=== PATIENT | female | born 1980 | race Asian ===

== ENCOUNTER 2018-02-16 01:31 | Inpatient (IN) | payer MEDICAID ==
[~2018-02-16] VITALS: Ht 160 cm; Wt 82.6 kg
[2018-02-16] MEDS ORDERED: LR 1,000 ML IV SCH ×2 (01:57→12:33)
[2018-02-16] MEDS ORDERED: CEFAZOLIN 2 GM IVPB PREMIX 50 ML IV ONE (02:00)
[2018-02-16] MEDS ORDERED: AMPICILLIN SODIUM 2 GM in NS 100 ML IV ONE (02:00)
[2018-02-16] MEDS ORDERED: TERBUTALINE SULFATE 1 MG/ML VIAL SUBCUT ONE (02:00)
[2018-02-16] MEDS ORDERED: AMPICILLIN SODIUM 2 GM VIAL ONE (02:28)
[2018-02-16 02:40] LABS: BILIRUBIN,URINE NEGATIVE (NEGATIVE); BLOOD, URINE 1+ (NEGATIVE); CLARITY/URINE CLEAR (CLEAR); COLOR,URINE YELLOW (YELLOW); GLUCOSE,URINE NEGATIVE (NEGATIVE); KETONES,URINE NEGATIVE (NEGATIVE); LEUKOCYTE ESTERASE ,URINE NEGATIVE (NEGATIVE); NITRITE, URINE NEGATIVE (NEGATIVE); PROTEIN URINE TRACE (NEGATIVE); UROBILINOGEN,URINE 0.2 (0.2-1.0)
[2018-02-16 02:47] LABS: BASOPHILS % (AUTO) 0.4 % (0.0-2.0); EOSINOPHILS # (AUTO) 0.1 K/uL (0.0-0.4); EOSINOPHILS % (AUTO) 0.9 % (0.0-4.0); HEMOGLOBIN 12.6 g/dL (12.0-16.0); LYMPHOCYTES # (AUTO) 1.9 K/uL (1.0-5.5); LYMPHOCYTES % (AUTO) 16.9 % (20.5-51.5); MEAN CORPUSCULAR HEMOGLOBIN 29 pg (27-31); MEAN CORPUSCULAR HGB CONC 33 % (32-36); MEAN CORPUSCULAR VOLUME 86 fL (79.0-98.0); MONOCYTES # (AUTO) 0.9 K/uL (0.0-1.0); MONOCYTES % (AUTO) 7.5 % (1.7-9.3); NEUTROPHILS # (AUTO) 8.6 K/uL (1.8-7.7); NEUTROPHILS % (AUTO) 74.3 % (40.0-70.0); PLATELET COUNT (AUTO) 178 K/uL (130-430); RED BLOOD CELL COUNT(AUTO) 4.42 MIL/uL (4.2-6.2); RED CELL DISTRIBUTION WIDTH 19.4 % (9.0-15.0); WHITE BLOOD COUNT (AUTO) 11.5 K/uL (4.8-10.8)
[2018-02-16 02:53] LABS: BACTERIA,URINE FEW /HPF (None Seen); WBC,URINE 0-3 /HPF (0-3)
[2018-02-16 02:54] LABS: MUCUS,URINE 1+ /LPF (None Seen)
[2018-02-16 03:36] VITALS: BP_SYST 123
[2018-02-16] MEDS ORDERED: AMPICILLIN SODIUM 1 GM in NS 50 ML IV SCH (06:00)
[2018-02-16] MEDS ORDERED: DIPHENHYDRAMINE INJ 50 MG/ML VIAL IVP PRN (06:45)
[2018-02-16] MEDS ORDERED: KETOROLAC TROMETHAMINE 60 MG/2 ML VIAL IM PRN (06:45)
[2018-02-16] MEDS ORDERED: ONDANSETRON HCL 4 MG/2 ML VIAL IVP PRN ×2 (06:45)
[2018-02-16] MEDS ORDERED: fentaNYL CITRATE/PF 100 MCG/2 ML AMP IVP PRN ×2 (06:45)
[2018-02-16] MEDS ORDERED: NALBUPHINE HCL 10 MG/ML AMP IVP PRN (06:45)
[2018-02-16] MEDS ORDERED: NALOXONE HCL 0.4 MG/ML AMP (NARCAN) IVP PRN ×2 (06:45)
[2018-02-16] MEDS ORDERED: MORPHINE SULFATE 10MG/10ML PF AMP SP SCH (06:45)
[2018-02-16] MEDS ORDERED: KETOROLAC TROMETHAMINE 30 MG VIAL IVP PRN (06:45)
[2018-02-16 07:20] VITALS: BP_SYST 120
[2018-02-16] MEDS ORDERED: OXYTOCIN/0.9 % SODIUM CHLORIDE 1,000 ML IV ONE ×2 (11:30→12:33)
[2018-02-16] MEDS ORDERED: SIMETHICONE 80 MG TAB.CHEW PO PRN (12:45)
[2018-02-16] MEDS ORDERED: BISACODYL 10 MG/SUPPOSITORY RC PRN (12:45)
[2018-02-16] MEDS: CEFAZOLIN 1 GM IVPB PREMIX 50 ML IV SCH ×2 (13:40→18:36)
[2018-02-17] MEDS ORDERED: ACETAMINOPHEN 325 MG TABLET PO PRN (03:15)
[2018-02-17] MEDS ORDERED: OXYCODONE/ACETAMINOPHEN 5-325 TABLET PO PRN ×2 (03:15)
[2018-02-17] MEDS: IBUPROFEN 600 MG TABLET PO SCH ×3 (06:25→17:31)
[2018-02-17 07:13] LABS: HEMATOCRIT 31.8 % (36-48); HEMOGLOBIN 10.5 g/dL (12.0-16.0); MEAN CORPUSCULAR HEMOGLOBIN 28 pg (27-31); MEAN CORPUSCULAR HGB CONC 33 % (32-36); MEAN CORPUSCULAR VOLUME 85 fL (79.0-98.0); PLATELET COUNT (AUTO) 157 K/uL (130-430); RED BLOOD CELL COUNT(AUTO) 3.73 MIL/uL (4.2-6.2); RED CELL DISTRIBUTION WIDTH 20.3 % (9.0-15.0)
[2018-02-17 07:21] LABS: WHITE BLOOD COUNT (AUTO) 14.5 K/uL (4.8-10.8)
[2018-02-17 07:52] LABS: ATYPICAL LYMPHOCYTES % 0 % (0-0); BAND % (MANUAL) 2 % (0-6); BASOPHILS % (MANUAL) 0 % (0-2); EOSINOPHILS % (MANUAL) 0 % (0-7); LYMPHOCYTES % (MANUAL) 7 % (20-46); MONOCYTES % (MANUAL) 6 % (0-11)
[2018-02-17] MEDS: DOCUSATE SODIUM 100 MG CAPSULE PO PRN (22:05)
[2018-02-18] MEDS: IBUPROFEN 600 MG TABLET PO SCH ×3 (01:08→15:40)
[2018-02-18] MEDS: DOCUSATE SODIUM 100 MG CAPSULE PO PRN (15:47)
[2020-02-17] MEDS ORDERED: NS IRRIG SOLN 1000 ML IR ONE (09:05)
[2020-02-17] MEDS ORDERED: ePHEDrine sulfate 50 MG/ML VIAL IVP ONE (09:05)
[2020-02-17] MEDS ORDERED: CEFAZOLIN 2 GM IVPB PREMIX 50 ML IV ONE (09:05)
[2020-02-17] MEDS ORDERED: BUPIVACAINE /DEX PF 0.75% SPINAL 2 ML AMP INJ ONE (09:05)
[2020-02-17] MEDS ORDERED: LR 1,000 ML IV.SOLN IV ONE (09:05)
[2020-02-17] MEDS ORDERED: MORPHINE SULFATE 10MG/10ML PF AMP EP ONE (09:05)
== END 2018-02-18 16:30 | disposition home or self-care (01) | DRG 540 ==
LOC: SPU 01:31
PROVIDERS: ADMIT Obstetrics & Gynecology; ATTEND Obstetrics & Gynecology
PROC: 10D00Z1 Extraction of Products of Conception, Low, Open Approach (ICD-10-PCS; principal; 2018-02-16 06:00)
DX: O34.211 Maternal care for low transverse scar from previous cesarean delivery (principal); Z37.0 Single live birth; Z3A.38 38 weeks gestation of pregnancy
CPT/HCPCS: 36415; 59899; 81000-TC; 85007; 85025; 85027; 86886; 86900; 86901; 94760; J0290; J0690; J1885; J2590; J3105